=== PATIENT | female | born 1980 | race Caucasian/White ===

== ENCOUNTER → 2017-02-25 | Outpatient (CLI) | payer BC | LOC: BMCIMAGING 10:25 | PROVIDERS: ATTEND Internal Medicine Rheumatology | DX: M54.6 Pain in thoracic spine (principal) ==

== ENCOUNTER → 2018-03-03 | Outpatient (CLI) | payer BC | LOC: BMCIMAGING 10:20 | PROVIDERS: ATTEND Internal Medicine Rheumatology | DX: M79.671 Pain in right foot (principal); M25.571 Pain in right ankle and joints of right foot; M53.3 Sacrococcygeal disorders, not elsewhere classified ==

== ENCOUNTER 2018-03-20 05:59 | Day surgery (SDC) | payer BC ==
--- NOTE | 2018-03-19 21:55 | GHP ---
[f rep st] PREOP HISTORY AND PHYSICAL DATE OF ADMISSION: 03/20/2018 HISTORY OF PRESENT ILLNESS: The patient presented to [facility] in February with a chief complaint of popping tendons on the outside of her right ankle. She did not relate an y history of acute injury, but possibly some old injuries that may have caused this. She has had bra cing, anti-inflammatories, decreased activity, all of which failed to alleviate her symptoms. At thi s point, she wanted a permanent solution. She also was diagnosed with insertional tendinitis of the Achilles tendon at the lateral 20% of the Achilles on the right side and she has an old os trigonum f racture on the posterior process of the talus. She wanted this excised also. The patient is a very healthy active 38-year-old female. PAST MEDICAL HISTORY: She currently has Raynaud, she has chronic back pain. She has been diagnosed with a connective tissue disorder. She has a leg length discrepancy. MEDICATIONS: She takes Adderall XR and IR, multivitamins. No other medications. ALLERGIES: Sulfa causes a rash. SOCIAL HISTORY: She has never used tobacco. Never uses alcohol. Her goal is to hike consistently a couple miles a day as often as possible. FAMILY HISTORY: She does have a father who has been diagnosed with lupus, so there are autoimmune pr oblems in her history. REVIEW OF SYSTEMS: At her preop appointment, she was alert and oriented. Not having any history of headaches, vision, hearing, nasal or throat problems. She is not having any cardiac arrhythmias, sima st pain, shortness of breath, GI distress, neurologic, dermatologic, or other musculoskeletal problem s. PHYSICAL EXAM: Preoperatively, she had normal pulses dorsal, pedal and posterior tibial arteries. C apillary refill less than 5 seconds to digits x10. NEUROLOGIC: Sharp, dull, light touch, propriocep tion all intact and symmetric to the digital level. She had normal temperature, texture and turgor w ith normal hair distribution bilateral. MUSCULOSKELETAL: Showed 5/5 manual muscle testing to the ex trinsic as well as intrinsic muscles of both lower extremities. She has pain-free range of motion to the ankle, subtalar and midtarsal joints bilateral. She does have the subluxing peroneal tendons wi th eversion on the forefoot on the rear foot. She has palpable tenderness at the insertion of the po sterior Achilles tendon, just at the lateral 20% of the posterior calcaneus, and she has tenderness w ith max plantar flexion of the right foot posteriorly at the level of the os trigonum. IMAGING: Lateral x-ray revealed a fractured posterior os trigonum. No spurring on the posterior asp ect of the calcaneus and no abnormalities along the fibula, as far as the bony abnormalities go. ASSESSMENT: 1. Subluxing peroneals laterally, right ankle. 2. Posterior insertional Achilles tendinitis, bilaterally. 3. Fractured os trigonum. PLANNED PROCEDURES: 1. Primary repair of the peroneal retinaculum over the subluxing peroneal tendons. 2. Excision minor spur with reattachment of the posterior Achilles tendon, lateral 20% of the fancy stitcher ior Achilles. 3. Excision of the os trigonum posteriorly on the ankle. At her preoperative appointment, we discussed risks and complications including residual pain, delaye d healing. Patient understood. Consent form was signed. She was given both oral and written postop instructions along with prescription for Vicodin 5/325, #30, 1 tab p.o. q.4-6h p.r.n. pain. She was given my cell phone number for 24 hour call postoperatively should she have any problems or question s. /[id number]/MODL
[2018-03-20] MEDS ORDERED: LR 1,000 ML IV ONE (06:20)
[2018-03-20] MEDS ORDERED: BUPIVACAINE 0.25% 30 ML SDV ONE (06:58)
[2018-03-20] MEDS ORDERED: LIDOCAINE 1% 300 MG/30 ML SDV ONE (06:58)
[2018-03-20] MEDS ORDERED: ceFAZolin 1 GM/5 ML SYR ONE (06:59)
[2018-03-20] MEDS ORDERED: SCOPOLAMINE HYDROBROMIDE 1 MG/3 DAYS PATCH TD ONE ×2 (07:08→07:10)
[2018-03-20] MEDS ORDERED: MIDAZOLAM 2 MG/2 ML VIAL IVP ONE (07:08)
[2018-03-20] MEDS ORDERED: ceFAZolin 2 GM/DEXTROSE 100 ML IV ONE (07:10)
--- NOTE | 2018-03-20 07:12 | PDANEPAE ---
ANE History of Present Illness repair of peroneal tendons, bone spur excision, R heel/ankle ANE Past Medical History - Cardiovascular History Hx Hypertension: No Hx Arrhythmias: No Hx Chest Pain: No Hx Coronary Artery / Peripheral Vascular Disease: No Hx CHF / Valvular Disease: Yes Hx Palpitations: No Cardiovascular History Comment: patent foraman overlay. 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 tonsils removed. deviated septum repaird x 3 ANE Review of Systems Review of Systems: - Exercise capacity METS (RN): 4 METS ANE Patient History - Allergies Allergies/Adverse Reactions: Sulfa (Sulfonamide Antibiotics) Allergy (Verified 03/11/18 14:37) Rash - Home Medications Home Medications: Adderall 30 mg Tablet 30 mg PO BID 03/20/18 [Last Taken 03/19/18] Herbals/Supplements -Info Only 03/20/18 [Last Taken 03/19/18] - NPO status NPO Since - Liquids (Date): 03/20/18 NPO Since - Liquids (Time): 00:01 NPO Since - Solids (Date): 03/19/18 NPO Since - Solids (Time): 23:15 - Anes Hx Anes Hx: post operative nausea Hx Anesthesia Complications (with details): Pt. reports having "high anesthesia " requirements with colonoscopy. - Smoking Hx Smoking Status: Never smoked Marijuana use: No - Alcohol Use Alcohol Use: None - Family Anes Hx Family Anes Hx: none Family Hx Anesthesia Complications: none ANE Labs/Vital Signs - Vital Signs Blood Pressure: 130/95 Heart Rate: 85 Respiratory Rate: 16 O2 Sat (%): 100 Height: 167.64 cm Weight: 63.957 kg ANE Physical Exam - Airway Neck exam: decreased ROM (decreased extension due to neck pain) Mallampati Score: Class 2 (decreased mouth opening due to TMJ concerns) Mouth exam: normal dental/mouth exam - Pulmonary Pulmonary: clear to auscultation - Cardiovascular Cardiovascular: regular rate and rhythym - ASA Status ASA Status: II ANE Anesthesia Plan Anesthesia Plan: general endotracheal anesthesia (Pt. will be in prone position for long procedure. Discussed additional concerns regarding neck pain, TMJ pain , reported increased anesthesia needs. Plan glidescope use in neutral position, prone-view use to optimize cervival spine position. Scopolamine patch for postop. N/V prophylaxis.)
[2018-03-20] MEDS ORDERED: ceFAZolin 2 GM/SWFI 2 GM/20 ML SYR IVP ONE (07:15)
[2018-03-20] MEDS ORDERED: PROPOFOL/EMULSION 500 MG/50 ML BOTTLE IV ONE (07:17)
[2018-03-20] MEDS ORDERED: fentaNYL 100 MCG/2 ML INJ ONE ×2 (07:17→09:26)
[2018-03-20] MEDS ORDERED: ROCURONIUM 50 MG/5 ML VIAL ONE (07:18)
[2018-03-20] MEDS ORDERED: DEXAMETHASONE 4 MG/ML VIAL ONE ×2 (07:18)
[2018-03-20] MEDS ORDERED: ONDANSETRON 4 MG/2 ML VIAL ONE (08:32)
[2018-03-20] MEDS ORDERED: KETOROLAC 30 MG/1 ML SDV ONE (08:40)
[2018-03-20] MEDS ORDERED: NEOSTIGMINE METHYLSULFATE 10 MG/10 ML MDV ONE (08:46)
[2018-03-20] MEDS ORDERED: GLYCOPYRROLATE 0.2 MG/1 ML VIAL ONE (08:46)
[2018-03-20] MEDS ORDERED: PROPOFOL 200 MG/20 ML VIAL ONE (08:54)
[2018-03-20] MEDS ORDERED: NALOXONE HCL 0.4 MG/ML INJ IVP PRN (08:56)
[2018-03-20] MEDS ORDERED: PROMETHAZINE HCL 25 MG/ML INJ IVP PRN (08:56)
[2018-03-20] MEDS ORDERED: fentaNYL 100 MCG/2 ML INJ IVP PRN (08:56)
[2018-03-20] MEDS ORDERED: ACETAMINOPHEN 500 MG TAB PO PRN (08:56)
[2018-03-20] MEDS ORDERED: HYDROmorphONE/DILAUDID 2 MG/ML INJ IVP PRN (08:56)
[2018-03-20] MEDS ORDERED: ONDANSETRON 4 MG/2 ML VIAL IVP PRN (08:56)
[2018-03-20] MEDS ORDERED: oxyCODONE IR 5 MG TAB PO PRN (08:56)
--- NOTE | 2018-03-20 09:48 | POSTANESTH ---
Post Anesthetic Evaluation Cardiovascular Status: Similar to Pre-Op Cond Respiratory Status: Normal, Stable Level of Consciousness/Mental Status: Can Participate in Eval Pain Control: Adequate, Prn Tx Ordered Nausea/Vomiting Control: Adequate, Prn Tx Ordered Complications Possibly Related to Anesthesia: None Noted
[2018-03-20 10:25] VITALS: BP 100/63
[2018-03-21] MEDS ORDERED: ADDERALL 30 MG PO SCH (09:00)
--- NOTE | 2018-03-24 17:22 | GOP ---
[f rep st] OPERATIVE REPORT DATE OF OPERATION: 03/20/2018 SURGEON: Nestor Power DPM ANESTHESIA: General anesthesia. ANESTHESIOLOGIST: Dr. Geiger plus a local infiltration of 10 cc of 0.5% Marcaine with epinephrine in a regional block. PREOPERATIVE DIAGNOSIS: 1. Subluxing peroneal tendons. 2. Fractured posterior process of the talus/os trigonum. 3. Posterior calcaneal spur. POSTOPERATIVE DIAGNOSIS: 1. Subluxing peroneal tendons. 2. Fractured posterior process of the talus/os trigonum. 3. Posterior calcaneal spur. PROCEDURE PERFORMED: FINDINGS: ESTIMATED BLOOD LOSS: Less than 10 cc. DESCRIPTION OF PROCEDURE: PROCEDURES: 1. Repair of subluxing peroneal tendons, right foot. 2. Excision of fractured posterior process of the talus. 3. Excision of posterior spur on the posterior calcaneus, right foot. COMPLICATIONS: There were no complications. DRAINS: There was a Demetrio drain placed intraoperatively at the end of surgery. TOURNIQUET: There was a tourniquet utilized. Total tourniquet time was less than 1 hour. DESCRIPTION OF PROCEDURES: Repair of subluxing peroneal tendons. The patient was taken to the opera ting room, placed in a prone position. After general anesthesia was achieved as well as local block to the lateral aspect of the right lower extremity. Attention was directed to the lateral aspect of the ankle where approximately 4-5 inch linear incision was made just posterior to the lateral malleol us and fibula of the right lower extremity. Dissection was carried down to the level of the tendons. Superficial vessels were clamped and bovied as necessary. Care was taken to preserve the neurovasc ular status to the area. At this point, where the peroneal tendons just proximal to the lateral mall eolus, it was apparent that the tendons were subluxing in this area, not severely. There were no fra ctures at the distal malleolus. It was just a loose peroneal retinaculum as well as a loose tendon s iban posteriorly that was allowing for the subluxation of the peroneal tendons. At this point, the sheath was entered via linear incision as well as the retinaculum. I checked the groove for the tyson kerry tendons at the level of the lateral malleolus and this was all intact. I went ahead and placed a single G2 Mitek anchor just anterior to the tendon sheath, so that it would not be within the sheat h itself and reattached both the sheath and the retinaculum back over the peroneal tendons. This ent shelly sheath was then reinforced with 3-0 Vicryl in a continuous interlocking type suture. At this poi nt, I dorsiflexed, plantar flexed the foot, inverted, everted the foot intraoperatively to assure dolores t there was no subluxation of the tendons, and this was indeed the case. The tendons appeared to be very stable. They were strong and they were being held in place very nicely with the reefing of the sheath and retinaculum. At this point, attention was directed to the posterior aspect of the ankle j oint via blunt dissection, the posterior process of the talus was exposed. I used a [place] elevator t o pry the posterior process or the fractured bone loose from scar tissue on the posterior ankle. Thi s was then excised from the operative site. Due to the size of the posterior bone that was excised, I recommended and utilized a drain to prevent hematoma formation in this open space area just posteri or to the ankle joint. At this point, the area was flushed copiously with dilute antibiotic solution . I did it once again dorsiflex, plantar flex, invert, and rafa the foot to make sure that the tyson kerry tendons were intact. I made sure there was no pinching on the posterior ankle with dorsiflexion , plantar flexion and none was noted. At this point, deep closure was carried out via 4-0 Vicryl in a simple interrupted suture. Subcu closure was carried out via 4-0 Vicryl in a horizontal mattress s uture and skin closure was carried out via 4-0 Prolene in an alternating simple interrupted and horiz ontal mattress suture. The Letcher drain was placed into that posterior area and run through the ski n at the level of the talus laterally, again to avoid hematoma formation. At this point, attention w as directed to the posterior heel where a 1 inch linear incision was made just lateral to the inserti on of the Achilles tendon over the calcaneus. Dissection was carried down to the level of the insert ion of the Achilles tendon laterally and there was a small area of the Achilles tendon, just a few st rands that were still attached, but there was a fairly large bony prominence noted intraoperatively a nd this was removed utilizing an osteotome and smoothed with a ibarra rasp. The area was reinspected 3 different times for any residual bony prominences and that was actually palpated intraoperatively to assure that there were no bony prominences noted. At this point, there was no need to reattach any of the Achilles tendon and as such, a small amount of it had to be detached in order to get to this p osterior bone spur. The area was flushed copiously with dilute antibiotic solution. Deep closure wa s carried out via 4-0 Vicryl in a simple interrupted suture of the sheath of the posterior Achilles t endon. Subcu closure was carried out via 4-0 Vicryl in a horizontal mattress suture and skin closure was carried out via 4-0 Prolene in a simple interrupted and horizontal mattress suture. Adaptic, 4x 4, Brett, and Coban were placed over the foot as well as Kerlix to absorb any drainage secondary to t he drain that was placed. The patient was placed in a long leg walking boot postoperatively in [facility]. It should be noted that the tourniquet was released prior to the dressings that were placed. T here was minimal bleeding intraoperatively when the tourniquet was released. After the dressings wer e placed, the patient went into recovery in a satisfactory state. She recovered very nicely, was estrellita thania into the long leg walking boot and she was to live in this until she was seen postoperatively in my office in 3-4 days. All questions were answered in recovery. I did talk with her about h er recovery and how to take care of her at home. All questions were answered with him. I went over the oral and written postop instructions with both of them postoperatively and they were given my [employer] phone number for 24 hour call should she have any problems or questions. /[id number]/MODL
== END 2018-03-20 10:40 | disposition home or self-care (01) ==
LOC: FSGY 05:59
PROVIDERS: ATTEND Podiatrist
PROC: 0QBL0ZZ Excision of Right Tarsal, Open Approach (ICD-10-PCS; principal; 2018-03-20 07:15)
PROC: 0LSV0ZZ Reposition Right Foot Tendon, Open Approach (ICD-10-PCS; principal; 2018-03-20 07:15)
DX: M77.31 Calcaneal spur, right foot (principal); M76.61 Achilles tendinitis, right leg; S92.101D Unspecified fracture of right talus, subsequent encounter for fracture with routine healing; S86.311S Strain of muscle(s) and tendon(s) of peroneal muscle group at lower leg level, right leg, sequela; I10 Essential (primary) hypertension; I73.00 Raynaud's syndrome without gangrene; G89.29 Other chronic pain; M21.70 Unequal limb length (acquired), unspecified site; Z88.2 Allergy status to sulfonamides
CPT/HCPCS: C1713; J0171; J0690; J1100; J1885; J2250; J2405; J2704; J3010

== ENCOUNTER → 2018-09-16 | Outpatient (CLI) | payer BC | LOC: BMCIMAGING 15:05 | PROVIDERS: ATTEND Internal Medicine | DX: Z12.31 Encounter for screening mammogram for malignant neoplasm of breast (principal); Z80.3 Family history of malignant neoplasm of breast ==